=== PATIENT | female | born 1985 | race Caucasian/White ===

== ENCOUNTER 2022-01-07 06:04 | Observation (INO) ==
[~2022-01-07 06:04] MED LIST: LEVOFLOXACIN 500 MG/100 ML BAG IV SCH
[2022-01-07] MEDS ORDERED: INDOCYANINE GREEN 25 MG VIAL IV ONE (08:58)
[2022-01-07] MEDS ORDERED: KETAMINE 50 MG/ML Syringe (ANEST) IV ONE (09:30)
[2022-01-07] MEDS ORDERED: ROCURONIUM 10 MG/ML ML IV ONE (09:30)
[2022-01-07] MEDS ORDERED: HYDROmorphone 1 MG/ML SYRINGE ONE (09:30)
[2022-01-07] MEDS ORDERED: PROPOFOL 200 MG/20 ML VIAL IV ONE (09:30)
[2022-01-07] MEDS ORDERED: LIDOCAINE HCL/PF 100 MG/5 ML SYRINGE IV ONE (09:30)
[2022-01-07] MEDS ORDERED: SUGAMMADEX SODIUM 200 MG/2 ML VIAL IV ONE (09:30)
[2022-01-07] MEDS ORDERED: fentaNYL 100 MCG/2 ML VIAL IV ONE (09:30)
[2022-01-07] MEDS ORDERED: MAGNESIUM SULFATE 2 GM/50 ML BAG IV ONE (09:30)
[2022-01-07] MEDS ORDERED: ONDANSETRON 4 MG/2 ML VIAL ONE (09:30)
[2022-01-07] MEDS ORDERED: DEXAMETHASONE 10 MG/ML VIAL ONE (09:30)
[2022-01-07] MEDS ORDERED: BUPIVACAINE W/EPI 0.25% 50 ML VIAL IJ ONE (10:05)
[2022-01-07] MEDS ORDERED: GUM MASTIC/STORAX/MSAL/ALCOHOL 1 DOSE DROPERETTE TOPICAL ONE (10:07)
[2022-01-07] MEDS ORDERED: NALOXONE HCL 0.4 MG/ML VIAL IV PRN (11:17)
[2022-01-07] MEDS ORDERED: METHOCARBAMOL 1,000 MG/10 ML VIAL IV PRN (11:17)
[2022-01-07] MEDS ORDERED: ACETAMINOPHEN 1,000 MG/100 ML BAG IV ONE (11:17)
[2022-01-07] MEDS ORDERED: MEPERIDINE 25 MG/ML VIAL IV PRN (11:17)
[2022-01-07] MEDS ORDERED: ONDANSETRON 4 MG/2 ML VIAL IV PRN (11:17)
[2022-01-07] MEDS ORDERED: KETOROLAC 30 MG/ML VIAL IV PRN (11:17)
[2022-01-07] MEDS ORDERED: LACTATED RINGERS 250 ML IV PRN (11:17)
[2022-01-07] MEDS ORDERED: diphenhydrAMINE 50 MG/ML VIAL IV PRN (11:17)
[2022-01-07] MEDS ORDERED: IPRATROPIUM/ALBUTEROL 3 ML AMPUL.NEB NEB PRN (11:17)
[2022-01-07] MEDS ORDERED: PROMETHAZINE 25 MG/ML VIAL IV PRN (11:17)
[2022-01-07] MEDS ORDERED: LACTATED RINGERS 1,000 ML IV SCH (11:30)
[2022-01-07] MEDS ORDERED: oxyCODONE HCL 5 MG TABLET PO PRN (12:36)
[2022-01-07] MEDS ORDERED: HYDROmorphone 0.5 MG/0.5 ML SYRINGE IV PRN (12:37)
[2022-01-07] MEDS: fentaNYL 100 MCG/2 ML VIAL IV PRN ×8 (12:40→13:15)
[2022-01-07] MEDS: ONDANSETRON 4 MG/2 ML VIAL IV PRN ×2 (14:19→20:40)
[2022-01-07] MEDS: DEXTROSE 5%-LR 1,000 ML IV SCH (15:29)
[2022-01-07] MEDS: KETOROLAC 15 MG/ML VIAL IV SCH ×2 (15:40→22:24)
[2022-01-07] MEDS: METOCLOPRAMIDE 10 MG/2 ML VIAL IV SCH ×2 (15:43→23:36)
[2022-01-08] MEDS: DEXTROSE 5%-LR 1,000 ML IV SCH ×2 (02:23→04:52)
[2022-01-08] MEDS: KETOROLAC 15 MG/ML VIAL IV SCH ×2 (05:34→14:00)
[2022-01-08 07:01] LABS: Hematocrit 36.8 % (34.1-44.9); Hemoglobin 12.2 g/dL (11.2-15.7); Mean Cell Volume 87.4 fL (80.0-100.0); Mean Corpuscular HGB Conc 33.2 g/dL (31.0-36.0); Mean Platelet Volume 9.1 fL (8.8-12.5); Platelet Count 266 K/mcL (140-440); RBC 4.21 M/mcL (3.59-5.38); WBC 8.9 K/mcL (4.5-11.0)
--- NOTE | 2022-01-08 07:24 | Operative Note ---
DATE OF OPERATION: 01/07/2022 DATE OF PROCEDURE: 01/07/2022 PREOPERATIVE DIAGNOSIS: Biliary colic. POSTOPERATIVE DIAGNOSIS: Acute and chronic cholecystitis. SURGEON: William Hickey M.D. ANESTHESIA: General. PREOPERATIVE MEDICATIONS: Levaquin 500 mg IV. INDICATIONS: The patient is a 36-year-old female who presented to the clinic last week with a number of intermittent episodes of severe right upper quadrant pain and discomfort that had been going on for almost a year and then more recently over the past month had become constant in nature and really quite severe at times, but never fully resolved. She had a HIDA scan, which demonstrated no gallbladder filling, but she had not undergone any other imaging at that point. A CT scan and ultrasound were obtained, which demonstrated findings of an impacted stone in the distal gallbladder at the junction of the neck and the cystic duct. We arranged for surgery after full discussion of risks, benefits, potential complications, and alternative treatment options, all of which were reviewed and discussed at length over the course of several conversations. These included, but are not limited to bleeding, infection, cosmetic dissatisfaction, abnormal scarring, trocar injury to surrounding structures, dissection work-related injury to surrounding structures, potential need for conversion to open, the potential need or indication for partial or subtotal cholecystectomy, the potential need for drain placement, follow-up procedure, secondary procedures and other issues. She gave full informed consent and wished to undergo the procedure as discussed. DESCRIPTION OF PROCEDURE: The patient was taken to the OR and placed supine on the OR table, placed under general anesthesia and intubated. Bilateral SCDs were applied. All pressure sensitive areas were carefully padded. The abdomen was widely prepped and draped in a sterile fashion. Procedure began with accessing the peritoneal cavity utilizing a 0-degree, 5-mm scope through a Visiport in the right upper abdomen under direct vision. This was obtained without issue. Once we were confirmed to have our trocar placed in the peritoneal cavity, pneumoperitoneum was obtained with high-flow CO2 insufflation. We then utilized a 0-degree scope to examine the area of access to make sure there is no evidence of injury; none was seen. We then changed out the 0-degree scope for a 30-degree scope and placed our remaining trocars. This included an additional 5 mm right upper abdominal working trocar, a 12 mm subxiphoid trocar and 5 mm supraumbilical midline trocar, again, all placed under direct vision. The camera was resited to the supraumbilical site. The patient was placed in a somewhat reverse Trendelenburg position, airplaned towards the left side. The gallbladder was identified and found to be very distended. A needle decompression was then performed under direct vision at the fundus, which decompressed the gallbladder nicely and confirmed hydrops of the gallbladder as well. The fundus was then grasped and retracted towards the right shoulder and we were able to splay out the gallbladder and the area of the hepatocystic triangle. A large stone was seen lodged in the neck of the gallbladder at its junction point with the cystic duct, which was stuck in place. It was immobile and could not be moved throughout the duration of the procedure. This foreshortened the area of the cystic duct significantly and there was a tremendous amount of inflammatory change throughout the hepatocystic triangle related to this. Dissection was made very difficult by the fact that the gallbladder could not be grasped in this area to allow for retraction and tissue tension in the standard way. Gradually working both anteriorly and posteriorly; however, we were able to complete a full and complete dissection of the hepatocystic triangle. The common bile duct could be seen coursing from the duodenum up into the carmela. Once we had adequately dissected out both posteriorly and anteriorly to fully delineate the hepatocystic triangle and once the cystic duct was definitively identified we were then able to obtain our critical view of safety, clearing out the entire space, so that the liver bed could be visualized very nicely along with the cystic duct and cystic artery. I then performed a very extensive cystic plate dissection as well to make sure there were no interposed structures seen medially. None were identified. Once this was complete, we then divided the cystic artery between clips and I elected to transect the cystic duct at its junction point with the neck immediately below the stone given how foreshortened things were in the area and had very little room for clip placement here. This was accomplished with the endovascular 35 mm Endo-VERONICA stapler utilizing the vascular load. Staple line was then grasped as well and retracted towards the right shoulder to further expose the remainder of the cystic plate and gallbladder fundus that required additional dissection and the remainder of the gallbladder was fairly quickly mobilized up out of the gallbladder fossa without issue and placed in an EndoCatch and removed through the upper abdominal midline trocar site. The gallbladder was removed intact, briefly inspected and sent to pathology for permanent inspection. Next, the area was irrigated out. We examined the dissection very carefully to make sure there was no evidence of active bleeding or hemorrhage. There was minimal amount of oozing, but no focal bleeding was seen in that position, placed some Surgicel here as an additional topical hemostatic. Then, given the difficult nature of the dissection, I elected to place a drain as well. A 19-Spanish round Bin drain was brought in through the lateral right upper abdominal 5 mm working trocar site and secured in place with a 3-0 silk stitch. It was then positioned in the gallbladder dissection bed immediately underneath the edge of the liver. We irrigated out again and made sure there was no active bleeding or hemorrhage, none was seen. We then once again inspected our access site and the remainder of the area to make sure there was no evidence of active bleeding, biliary leakage or any other concern; none were noted. I then removed the 12 mm trocar under direct vision and closed it with several interrupted 0 Vicryl sutures utilizing the inlet fascial closure device with an obturator. We then removed our final trocar under direct vision to make sure there was no bleeding and then relieved pneumoperitoneum and this completed this portion of the procedure. Incisions were then closed in layers with interrupted 3-0 Vicryl and 4-0 Monocryl sutures, respectively. Steri-Strips and sterile dressings were applied. The patient was awakened, extubated, and transferred to PACU in satisfactory condition with no apparent complications or issues. INSTRUMENT COUNTS: Sponge, needle and instrument counts were correct. ESTIMATED BLOOD LOSS: Roughly 5 mL. DRAINS: A single 19-Spanish round Bin drain. BW:tima Job ID: [id number] Doc ID: [id number] William Hickey M.D.
[2022-01-08 07:36] LABS: ALT/SGPT 49 U/L (<40); AST/SGOT 43 U/L (<32); Albumin 3.6 gm/dL (3.2-5.2); Albumin/Globulin Ratio 1.5 (1.0-2.3); Alkaline Phosphatase 60 U/L (39-117); Bilirubin,Total 0.3 mg/dL (0.1-1.0); Blood Urea Nitrogen 7 mg/dL (6-20); Calcium 8.6 mg/dL (8.6-10.4); Carbon Dioxide 22 mmol/L (22-30); Chloride 106 mmol/L (96-108); Globulin 2.4 gm/dL (2.2-3.7); Glomerular Filtration Rate 125; Glucose 119 mg/dL (70-105)
--- NOTE | 2022-01-08 08:29 | General Surgery Progress Note ---
SUBJECTIVE Subjective Patient information: Note initiated : 01/08/22 at 8:25 am Service Date, if different from initiated Date: [] Patient: Henri Brady 36 y/o F admitted on 01/07/22 for Laparoscopic Cholecystectomy. Chief Complaint: [] Clinically looks well, passing gas, nausea much improved, tolerating clears Constitutional Vitals: Vital Signs Temp Pulse Resp BP Pulse Ox O2 Del Method O2 Flow Rate 98.4 F 71 14 96/54 100 0 01/08/22 07:43 01/08/22 07:43 01/08/22 07:43 01/08/22 07:43 01/08/22 07:43 01/08/22 07:43 01/07/22 13:40 Period Temp Pulse Resp BP Sys/Edwards Pulse Ox O2 Del Method O2 Flow Rate Last 24 Hr 97 F-98.4 F 56-98 10-18 91-124/51-84 94-100 Room Air-Room Air 0-6 Intake and Output 01/07/22 01/08/22 01/08/22 21:59 05:59 13:59 Intake Total 120 1590 Output Total 30 Balance 120 1560 Weight 216 lb 4.8 oz Intake & Output: Intake & Output 01/07/22 01/08/22 01/08/22 21:59 05:59 13:59 Intake Total 120 1590 Output Total 30 Balance 120 1560 Weight 216 lb 4.8 oz Intake: IV 1000 Dextrose 5%-Lactated Ringers 1, 1000 000 ml @ 75 mls/hr IV .[id number] BEBA Rx#:[id number] Oral 120 590 Output: Drainage 30 Abdomen LYSSA Drain 30 Other: # Voids 1 1 # Unmeasured Emesis 1 Exam: looks well, nontoxic, NAD Respiratory Respiratory exam: Present normal respiratory exam Additional comments: non labored, normal effort Cardiovascular Cardiovascular exam: Present normal rate and rhythm GI/Abdominal Additional comments: soft and non tender, non distended, drain is scant serosang. Extremities Exam Additional comments: well perfused A/P Assessment and plan (1) Cholecystitis: Assessment and plan: Doing Post Lap Cholecystectomy Advance Diet Increase Activity Home later today if doing well Status: Acute Time Spent With Patient Time: Total time spent is greater than 50% in coordination of care (as documented) at patient's floor/unit and/or counseling patient:
[2022-01-08] MEDS: METOCLOPRAMIDE 10 MG/2 ML VIAL IV SCH (09:12)
== END 2022-01-08 13:43 | disposition home or self-care (01) ==
LOC: SUR 06:04 → MEDSUR 06:04
PROVIDERS: ADMIT Surgery Surgical Critical Care; ATTEND Surgery Surgical Critical Care